=== PATIENT | female | born 1940 | race Caucasian/White ===

== ENCOUNTER 2018-04-01 17:26 | Observation (INO) ==
[2018-04-01] MEDS ORDERED: Aspirin 81 MG TAB.CHEW PO ONE (17:32)
--- NOTE | 2018-04-01 17:42 | Emergency Department Note ---
Disposition Clinical Impression: Chest pain Qualifiers: Chest pain type: unspecified Qualified Code(s): R07.9 - Chest pain, unspecified Disposition: Still a Patient General Adult HPI - General Chief complaint: ED Chest Pain Stated complaint: CP Time Seen by Provider: 04/01/18 17:32 Source: EMS Limitations: no limitations - History of Present Illness HPI Narrative: Attestation note: Patient was seen with the emergency medicine resident/nurse practitioner/ physician anesthesiologist assistant/transitional resident/medical student: Dr. Amanda Barnard I have personally performed a face to face evaluation on this patient. I have reviewed and agree with history and physical examination patient management and disposition. Briefly the salient points of the case are as follows: 69-year-old female brought in by EMS from urgent care center for lightheadedness fogginess and chest pain. No known history of CAD to prior cardiac catheterizations which were negative. Patient is neurologically nonfocal no facial asymmetry no slurred speech. GCS 15. EKG shows an intraventricular conduction delay. Unclear if this is new or not. Patient will get a head CT then she will get troponin screening labs chest x-ray. Disposition pending. Admission strong possibility. Pain Scale: 3 - Related Data Home Medications Medication Instructions Recorded Confirmed Advair 250-50 Diskus 01/23/18 Aspirin 01/23/18 Claritin D (12HR) 01/23/18 Diclofenac Sodium [Voltaren] 01/23/18 Duoneb 01/23/18 Famotidine 01/23/18 Incruse Ellipta 01/23/18 Ipratropium/Albuterol Neb 01/23/18 Klonopin 01/23/18 Magnesium 01/23/18 [place] 3 500 Softgel 01/23/18 Prilosec 01/23/18 Synthroid 01/23/18 Ventolin Hfa 01/23/18 Vitamin C 01/23/18 Vitamin D3 01/23/18 Vitamin E 01/23/18 Previous Rx's Medication Instructions Recorded Albuterol Sulfate [Albuterol 2 puff IH QID #1 inhaler 01/23/18 Inhaler] Amoxicillin 875 mg PO BID #20 tablet 01/23/18 cephALEXin [Keflex] 500 mg PO TID #21 capsule 02/14/18 Allergies Allergy/AdvReac Type Severity Reaction Status Date / Time acetaminophen [From Percocet] Allergy Nausea Verified 04/01/18 17:37 ciprofloxacin [From Cipro] Allergy Nausea Verified 04/01/18 17:37 Corticosteroids Allergy Nausea Verified 04/01/18 17:37 (Glucocorticoids) doxycycline Allergy Nausea Verified 04/01/18 17:37 ketorolac [From Toradol] Allergy Nausea Verified 04/01/18 17:37 nitrofurantoin Allergy Nausea Verified 04/01/18 17:37 [From Macrobid] NSAIDS (Non-Steroidal Allergy Nausea Verified 04/01/18 17:37 Anti-Inflamma Oxycodone [From Percocet] Allergy Nausea Verified 04/01/18 17:37 prednisone Allergy Nausea Verified 04/01/18 17:37 Jijxwwu-Ivm-Iii Reductase Allergy Nausea Verified 04/01/18 17:37 Inhibitor [Statins] Sulfa (Sulfonamide Allergy Nausea Verified 04/01/18 17:37 Antibiotics) Past Medical History - Past Medical History Medical history: Reports: kidney stones, thyroid disease, TIA, other Surgical history: Reports: appendectomy, hysterectomy, orthopedic, other Psychiatric history: Reports: anxiety, depression DIRECTOR HAIR history: Reports: non-contributory - Social History Smoking Status: Never smoker Smokeless Tobacco Status: No Alcohol use: Reports: none Drug use: Reports: none Physical Exam - General Limitations: no limitations General appearance: alert, in no apparent distress Course Vital Signs Temperature 98.5 F 04/01/18 17:27 Pulse Rate 71 04/01/18 17:27 Respiratory Rate 22 04/01/18 17:27 Blood Pressure 190/77 04/01/18 17:27 O2 Sat by Pulse Oximetry 100 04/01/18 17:27 Temperature 98.5 F 04/01/18 17:27 Pulse Rate 71 04/01/18 17:27 Respiratory Rate 22 04/01/18 17:27 Blood Pressure 190/77 04/01/18 17:27 O2 Sat by Pulse Oximetry 100 04/01/18 17:27 Oxygen Delivery Oxygen Delivery Room Air
[2018-04-01 17:58] LABS: Basophils # 0.1 K/mcL (0.0-0.2); Basophils % 0.6 %; Eosinophils # 0.3 K/mcL (0.0-0.6); Eosinophils % 2.7 %; Hematocrit 41.8 % (35.3-44.9); Hemoglobin 13.6 g/dL (11.5-15.4); Immature Granulocytes % 0.5 % (0-4); Lymphocytes # 3.7 K/mcL (0.6-4.6); Lymphocytes % 37.2 %; Mean Corpuscular HGB Conc 32.5 g/dL (31.6-35.5); Mean Corpuscular Hemoglobin 30.4 pg (28.0-33.3); Mean Corpuscular Volume 93.3 fL (83.0-100.0); Mean Platelet Volume 11.5 fL (9.4-12.4); Monocytes # 0.9 K/mcL (0.0-1.3); Monocytes % 9.3 %; Neutrophils # 4.9 K/mcL (1.6-8.9); Platelet Count 253 K/mcL (140-400); Red Blood Count 4.48 M/mcL (3.82-4.97); Red Cell Distribution Width 12.4 % (11.5-14.5); Segmented Neutrophils % 49.7 %
--- NOTE | 2018-04-01 18:00 | Emergency Department Note ---
Disposition Clinical Impression: Shortness of breath Chest pain Qualifiers: Chest pain type: unspecified Qualified Code(s): R07.9 - Chest pain, unspecified Disposition: Admitted As Inpatient Condition: Good Referrals: Kodak Martinez MD [Primary Care Provider] - Forms: ED Satisfaction Letter General Adult HPI - General Chief complaint: ED Chest Pain Stated complaint: CP Time Seen by Provider: 04/01/18 17:32 Source: EMS Mode of arrival: EMS Limitations: no limitations Nursing Notes Reviewed: Yes Vital Signs Reviewed: Yes - History of Present Illness HPI Narrative: 77 year old woman with hx significant for CAD, anxiety, HTN, HLD and very remote CVA (). Was at urgent care complaining of chest pain with L arm radiation that began ~1100 today thats intermittent, worse with exertion and was transferred via EMS to ED. During transport she had what was described by EMS as syncopal event for 30 seconds, EMS ECG NSR, HR 70, LBBB. She had spontaneous return to consciousness prior to arrival to ED. Upon arrival here she was complaining of mid sternal and L superior thoracic chest pain with occasional L arm radiation. She additionally complained of SOB during and bilateral LE weakness along with anxiety. She denied any blurry vision, diplopia , diaphoresis, abdominal pain, N/V, numbness/paresthesia. Pt Subjective Complaint: chest pain Onset (ago): hour(s) Location: chest Radiation: extremity Pain Severity: mild Pain Scale: 3 - Related Data Home Medications Medication Instructions Recorded Confirmed Advair 250-50 Diskus 01/23/18 Aspirin 01/23/18 Claritin D (12HR) 01/23/18 Diclofenac Sodium [Voltaren] 01/23/18 Duoneb 01/23/18 Famotidine 01/23/18 Incruse Ellipta 01/23/18 Ipratropium/Albuterol Neb 01/23/18 Klonopin 01/23/18 Magnesium 01/23/18 [place] 3 500 Softgel 01/23/18 Prilosec 01/23/18 Synthroid 01/23/18 Ventolin Hfa 01/23/18 Vitamin C 01/23/18 Vitamin D3 01/23/18 Vitamin E 01/23/18 Previous Rx's Medication Instructions Recorded Albuterol Sulfate [Albuterol 2 puff IH QID #1 inhaler 01/23/18 Inhaler] Amoxicillin 875 mg PO BID #20 tablet 01/23/18 cephALEXin [Keflex] 500 mg PO TID #21 capsule 02/14/18 Allergies Allergy/AdvReac Type Severity Reaction Status Date / Time acetaminophen [From Percocet] Allergy Nausea Verified 04/01/18 17:37 ciprofloxacin [From Cipro] Allergy Nausea Verified 04/01/18 17:37 Corticosteroids Allergy Nausea Verified 04/01/18 17:37 (Glucocorticoids) doxycycline Allergy Nausea Verified 04/01/18 17:37 ketorolac [From Toradol] Allergy Nausea Verified 04/01/18 17:37 nitrofurantoin Allergy Nausea Verified 04/01/18 17:37 [From Macrobid] NSAIDS (Non-Steroidal Allergy Nausea Verified 04/01/18 17:37 Anti-Inflamma Oxycodone [From Percocet] Allergy Nausea Verified 04/01/18 17:37 prednisone Allergy Nausea Verified 04/01/18 17:37 Wxnblyq-Eay-Fcs Reductase Allergy Nausea Verified 04/01/18 17:37 Inhibitor [Statins] Sulfa (Sulfonamide Allergy Nausea Verified 04/01/18 17:37 Antibiotics) All systems ED: reviewed and negative except as stated. 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 Absent: nystagmus - ENT ENT exam: mucous membranes moist - Neck Neck exam: Present: normal inspection, trachea midline - Chest Chest inspection: Present: normal inspection, symmetric chest wall rise. Absent : tenderness - Respiratory Respiratory exam: Present: normal lung sounds bilaterally - Cardiovascular Cardiovascular exam: Present: regular rate, normal rhythm, normal heart sounds, +S1, +S2 - Abdominal Exam Abdominal exam: Present: soft, Non-Tender. Absent: distention, guarding, rebound, rigidity - Extremities Exam Extremities exam: Absent: pedal edema - Expanded Lower Extremity Exam Neurovascular/Tendon exam: Present: normal capillary refill. Absent: pulse deficit - Neurological Exam Neurological exam: Present: alert, CN II-XII intact - Expanded Neurological Exam Speech: Present: fluid speech (but slowed) Motor strength - LUE: 5/5 Motor strength - RUE: 5/5 Motor strength - LLE: 4/5 Motor strength - RLE: 4/5 - Psychiatric Psychiatric exam: Present: anxious - Skin Skin exam: Present: warm, dry, intact, normal color Course Course Narrative: Presents to ED from urgent care with intermittent midsternal/L superior thoracic chest pain that radiates to L arm that began at 1100 today with associated SOB, anxiety, and bilateral LE weakness. Had syncopal episode for 30 seconds during EMS transfer with spontaneous resolution. POC glucose 99 on arrival, ECG 1733 NSR, hr 71, pr 195, qt 443, normal p axis, intraventricular conduction delay without any acute changes or major changes from old ECG from . BP 190/77 initially. Will give 325mg ASA, get d dimer, troponin, cbc, bmp , ct head and cxr now. HEART score 5. 1825: Troponin neg, D dimer high at 935, Cr 1, will get CTA now in setting of chest pain, sob and elevated d dimer. CT head no acute intracranial abnormality. Diffuse atrophic changes with findings suggesting chronic microvascular ischemia and an old right frontal lobe infarct. 1844: She says she is no longer having symptoms and feels much better. 2024: No evidence of acute pulm embolism or pulm abnormality on CTA chest. 2114: Will admit to hospitalist service. Dr West accepted the admission. Vital Signs Temperature 98.5 F 04/01/18 17:27 Pulse Rate 71 04/01/18 17:27 Respiratory Rate 22 04/01/18 17:27 Blood Pressure 190/77 04/01/18 17:27 O2 Sat by Pulse Oximetry 100 04/01/18 17:27 Temperature 98.5 F 04/01/18 17:27 Pulse Rate 63 04/01/18 19:30 Respiratory Rate 18 04/01/18 19:30 Blood Pressure 160/80 04/01/18 19:30 O2 Sat by Pulse Oximetry 99 04/01/18 19:30 Oxygen Delivery Oxygen Delivery Room Air Medical Decision Making - Lab Data Result diagrams: 04/01/18 17:46 04/01/18 17:46 Lab Results 04/01/18 04/01/18 04/01/18 Range/Units 17:46 17:46 17:46 WBC 9.9 (4.3-11.1) K/mcL RBC 4.48 (3.82-4.97) M/mcL Hgb 13.6 (11.5-15.4) g/dL Hct 41.8 (35.3-44.9) % MCV 93.3 (83.0-100.0) fL MCH 30.4 (28.0-33.3) pg MCHC 32.5 (31.6-35.5) g/dL RDW 12.4 (11.5-14.5) % Plt Count 253 (140-400) K/mcL MPV 11.5 (9.4-12.4) fL Immature Gran % 0.5 (0-4) % Seg Neutrophils % 49.7 % Lymphocytes % 37.2 % Monocytes % 9.3 % Eosinophils % 2.7 % Basophils % 0.6 % Neutrophils # 4.9 (1.6-8.9) K/mcL Lymphocytes # 3.7 (0.6-4.6) K/mcL Monocytes # 0.9 (0.0-1.3) K/mcL Eosinophils # 0.3 (0.0-0.6) K/mcL Basophils # 0.1 (0.0-0.2) K/mcL PT 10.1 (9.4-12.1) Seconds INR 0.9 D-Dimer 952 H (0-500) ng/mLFEU Sodium 139 (136-145) mEq/L Potassium 3.8 (3.5-5.1) mEq/L Chloride 108 H (98-107) mEq/L Carbon Dioxide 20 L (23-29) mEq/L BUN 26 H (8-23) mg/dL Creatinine 1.04 (0.60-1.20) mg/dL Est GFR ( Amer) > 60 (> 60) Est GFR (Non-Af Amer) 51 L (> 60) BUN/Creatinine Ratio 25 (6-26) Glucose 86 (70-105) mg/dL Calculated Osmolality 292 (280-300) Calcium 9.7 (8.6-10.3) mg/dL Troponin I < 0.03 (< 0.04) ng/mL
[2018-04-01 18:03] LABS: INR 0.9; Prothrombin Time 10.1 Seconds (9.4-12.1)
[2018-04-01] MEDS ORDERED: Isovue-370 500 ML INFUS..BTL IV ONE (18:22)
[2018-04-01 18:23] LABS: BUN/Creatinine Ratio 25 (6-26); Blood Urea Nitrogen 26 mg/dL (8-23); Calcium 9.7 mg/dL (8.6-10.3); Carbon Dioxide 20 mEq/L (23-29); Chloride 108 mEq/L (98-107); Glucose 86 mg/dL (70-105); Osmolality,Calculated 292 (280-300); Potassium 3.8 mEq/L (3.5-5.1); Sodium 139 mEq/L (136-145); eGFR For Non-African Americans 51 (> 60)
[2018-04-01 18:24] LABS: Troponin I < 0.03 ng/mL (< 0.04)
[2018-04-01] MEDS ORDERED: Naloxone 0.4 MG/ML INJ IVP PRN (23:00)
[2018-04-01] MEDS ORDERED: *HR* Enoxaparin 60 MG/0.6 ML SYRINGE SQ STA (23:00)
[2018-04-01] MEDS ORDERED: 0.9 % Sodium Chloride 1,000 ML IVC SCH (23:00)
[2018-04-01] MEDS: clonazePAM 1 MG TABLET PO SCH (23:55)
--- NOTE | 2018-04-02 00:20 | Internal Med History&Physical ---
Date of Encounter: 04/01/18 Time of Encounter: 21:00 Internal Medicine - H&P: HPI Chief complaint: chest pain; syncope Admitted From: Home Plans for Post Hospital Care: Home History of present illness: Ms. Kang is a 77 year old female who presents to the ER tonight with complaints of chest pain. She was sitting at home watching TV when she developed chest pain and heaviness. She had been experiencing these symptoms for the last couple days. However, today's episode was more severe and intense and that prompted her to call EMS. She was en route to the hospital by EMS when she developed a syncopal spell in the squad. Upon arrival to the ER, she was minimally responsive, but within minutes, she was back to baseline cognition and mental state. Workup in ER was negative except for an EKG showing left bundle branch block. This was an old finding and not new. She was therefore admitted to the hospitalist service. Upon my assessment of the patient in the ER, she confirms the above history. She reports a history of known coronary disease but has not required intervention. She had a heart catheterization about 10 years ago documenting coronary disease. She also reports that her son suddenly several years ago from a massive OR at the age of 49. She does report a history of anxiety and GERD. She takes Klonopin for anxiety and is well-controlled. She takes [id number] famotidine for GERD which generally treats her symptoms. Her chest pain may be due to either the above, but cardiac issues must be ruled out nonetheless. She did have an elevated d-dimer in the ER which prompted them to proceed with CTA of the chest. There was no evidence of PE. She has had some nonspecific calf tenderness. She denies any prolonged travel. She denies any personal or family history of blood clots. Past Med Surg Social Fam HX - Past Medical History Attestation: Yes The following information was validated with the patient. Source: patient, old records reviewed Medical history: kidney stones, thyroid disease, TIA Additional medical history: carotid stenosis, hypothyroidism Psychiatric history: anxiety, depression - Past Surgical History Surgical History: appendectomy, hysterectomy, knee replacement, orthopedic, other Additional surgical history: back surgery - Social History Smoking Status: Former smoker Smokeless Tobacco Status: No Alcohol use: none Drug use: none Current living situation: Home - Independent Activity Level: Independent ambulation Recent Out of Country Travel Within the Last 8 Weeks: No - Family History Mother Hx Family Cancer: Yes (uterine, colon) Son Living Status: Hx Family Cardiac Disorders: Yes (OR) Internal Medicine - H&P: Meds Advair 250-50 Diskus 01/23/18 [History] Albuterol Sulfate [Albuterol Inhaler] 2 puff IH QID #1 inhaler 01/23/18 [Rx] Amoxicillin 875 mg PO BID #20 tablet 01/23/18 [Rx] Aspirin 81 mg PO DAILY 01/23/18 [History] Claritin D (12HR) 01/23/18 [History] Diclofenac Sodium [Voltaren] 01/23/18 [History] Duoneb 01/23/18 [History] Famotidine 01/23/18 [History] Incruse Ellipta 01/23/18 [History] Ipratropium/Albuterol Neb 01/23/18 [History] Klonopin 1 mg PO BID 01/23/18 [History] Magnesium 01/23/18 [History] [place] 3 500 Softgel 01/23/18 [History] Prilosec 01/23/18 [History] Synthroid 50 mg PO DAILY 01/23/18 [History] Ventolin Hfa 01/23/18 [History] Vitamin C 01/23/18 [History] Vitamin D3 01/23/18 [History] Vitamin E 01/23/18 [History] cephALEXin [Keflex] 500 mg PO TID #21 capsule 02/14/18 [Rx] 3 Allergy/AdvReac Type Severity Reaction Status Date / Time acetaminophen [From Percocet] Allergy Nausea Verified 04/01/18 17:37 ciprofloxacin [From Cipro] Allergy Nausea Verified 04/01/18 17:37 Corticosteroids Allergy Nausea Verified 04/01/18 17:37 (Glucocorticoids) doxycycline Allergy Nausea Verified 04/01/18 17:37 ketorolac [From Toradol] Allergy Nausea Verified 04/01/18 17:37 nitrofurantoin Allergy Nausea Verified 04/01/18 17:37 [From Macrobid] NSAIDS (Non-Steroidal Allergy Nausea Verified 04/01/18 17:37 Anti-Inflamma Oxycodone [From Percocet] Allergy Nausea Verified 04/01/18 17:37 prednisone Allergy Nausea Verified 04/01/18 17:37 Qnqsreu-Jim-Tid Reductase Allergy Nausea Verified 04/01/18 17:37 Inhibitor [Statins] Sulfa (Sulfonamide Allergy Nausea Verified 04/01/18 17:37 Antibiotics) - Constitutional Constitutional: no chills, no fever(s), no night sweats - EENT Eyes: no blurry vision, no change in vision Ears: no ear pain, no tinnitus Nose, mouth and throat: no nasal congestion, no sinus pressure, no sore throat - Cardiovascular Cardiovascular ROS IM: chest pain, dyspnea, dyspnea on exertion, syncope, no orthopnea, no palpitations, no paroxysmal nocturnal dyspnea - Respiratory Respiratory: no cough, no hemoptysis, no chest congestion, no excessive phlegm production, no change in phlegm color - Gastrointestinal Gastrointestinal: dyspepsia, heartburn, no abdominal pain, no diarrhea, no hematemesis, no hematochezia, no melena, no vomiting - Genitourinary Genitourinary: no dysuria, no flank pain, no hematuria - Musculoskeletal Musculoskeletal ROS IM: back pain, no arthralgias - Integumentary Integumentary IM: no rash, no jaundice - Neurological Neurological ROS: no dizziness, no focal weakness, no frequent falls, no headache(s) - Psychiatric Psychiatric: anxiety, no depression - Endocrine Endocrine IM: no cold intolerance, no heat intolerance, no polydipsia, no polyphagia, no polyuria - Hematologic/Lymphatic Hematologic/Lymphatic: no easy bruising, no lymphadenopathy - Allergic/Immunologic Allergic/Immunologic: no GI upset with certain foods - Constitutional Vitals: Temp Pulse Resp BP Pulse Ox 97.8 F 62 16 162/80 96 04/01/18 23:13 04/01/18 23:13 04/01/18 23:13 04/01/18 23:13 04/01/18 23:13 General appearance: Present: cooperative, A&O X 3, pleasant, no acute distress, answers questions appropriately Exam: see below - Head Head exam: Present: atraumatic, normal inspection - Eye Eye exam: Present: EOMI, PERRL. Absent: scleral icterus Pupils: Present: normal accommodation - ENT ENT exam: Present: mucous membranes moist, normal exam, normal oropharynx - Neck Neck exam general surgery: Present: full ROM, supple. Absent: tenderness, nuchal rigidity, thyromegaly - Expanded Neck Exam Neck exam: Absent: carotid bruit - Respiratory Respiratory exam: Present: CTAB. Absent: chest wall tenderness, rales, respiratory distress, rhonchi, wheezes - Cardiovascular Cardiovascular exam: Present: RRR, +S1, +S2. Absent: diastolic murmur, systolic murmur - GI/Abdominal GI/Abdominal exam: Present: normal bowel sounds, soft. Absent: hepatomegaly, mass, splenomegaly, tenderness - Extremities Exam Extremities exam: Present: calf tenderness (minimal blateral ), full ROM, warm, radial pulses palpable and symmetrical. Absent: joint swelling, pedal edema, tenderness - Back Exam Back exam: Absent: CVA tenderness (L), CVA tenderness (R) - Neurological Exam Neurological exam: Present: alert, CN II-XII intact, oriented X3, no focal deficits - Psychiatric Psychiatric exam: Present: normal affect, normal mood - Skin Skin exam: Present: dry, intact, warm Internal Med - H&P Results - Labs CBC & Chem 7: 04/01/18 17:46 04/01/18 17:46 - EKG Data -: EKG Interpreted by Myself - EKG Data Prior EKG available for review: yes EKG comments: 04/02/18 00:25 LBBB -- old - Diagnostic Studies Chest x-ray Status: image reviewed by me (negative) - Assessment and plan (1) Chest pain Current Visit: Yes Status: Acute Assessment and plan: 1. Will trend troponins and EKG's. 2. Will order ECHO. 3. Consult cardiology given LBBB, chest pain, and history of known CAD. Last [facility] was here about 10 years ago per patient. Qualifiers: Chest pain type: chest pain due to myocardial ischemia Ischemic chest pain type: stable angina pectoris Qualified Code(s): I20.8 - Other forms of angina pectoris (2) Syncope Current Visit: Yes Status: Acute Assessment and plan: 1. Will order ECHO and Carotid Dopplers. 2. Monitor on telemetry. 3. Will monitor glucose for hypoglycemia. 4. Cardiac work-up as above. Qualifiers: Syncope type: unspecified Qualified Code(s): R55 - Syncope and collapse (3) Elevated d-dimer Current Visit: Yes Status: Acute Assessment and plan: 1. Some clinical concern for DVT given D-Dimer elevation and subtle calf tenderness. 2. I ordered a one time dose of Lovenox (1 mg/kg) tonight and BLE Dopplers to be done in the morning. 3. Pending Doppler results, she may need further anti-coagulation. (4) DVT prophylaxis Current Visit: Yes Status: Acute Assessment and plan: 1. Lovenox one time as above. 2. Further prophylaxis vs anti-coagulation pending BLE Dopplers.
[2018-04-02 01:15] LABS: Basophils % 0.5 %; Eosinophils # 0.3 K/mcL (0.0-0.6); Eosinophils % 3.8 %; Hematocrit 36.2 % (35.3-44.9); Immature Granulocytes % 0.3 % (0-4); Lymphocytes # 2.4 K/mcL (0.6-4.6); Lymphocytes % 29.8 %; Mean Corpuscular HGB Conc 33.1 g/dL (31.6-35.5); Mean Corpuscular Hemoglobin 30.8 pg (28.0-33.3); Mean Corpuscular Volume 92.8 fL (83.0-100.0); Mean Platelet Volume 11.9 fL (9.4-12.4); Monocytes % 12.1 %; Neutrophils # 4.2 K/mcL (1.6-8.9); Platelet Count 204 K/mcL (140-400); Red Cell Distribution Width 12.6 % (11.5-14.5); Segmented Neutrophils % 53.5 %
[2018-04-02 01:18] LABS: INR 0.9; Prothrombin Time 10.2 Seconds (9.4-12.1)
[2018-04-02 01:21] LABS: Activated Partial Thrombo Time 44.2 Seconds (26.0-36.0)
[2018-04-02 01:30] LABS: Alanine Aminotransferase 6 Units/L (7-52); Albumin 3.6 g/dL (3.5-5.7); Albumin/Globulin Ratio 1.7 (1.1-2.2); Alkaline Phosphatase 61 Units/L (34-104); Aspartate Amino Transferase 16 Units/L (13-39); BUN/Creatinine Ratio 24 (6-26); Bilirubin,Total 0.3 mg/dL (0.3-1.0); Blood Urea Nitrogen 24 mg/dL (8-23); Calcium 8.9 mg/dL (8.6-10.3); Carbon Dioxide 20 mEq/L (23-29); Chloride 112 mEq/L (98-107); Chol/HDL Ratio 3.8 (0-4.9); Cholesterol 156 mg/dL (< 200); Globulin 2.1 g/dL (2.4-3.5); Glucose 89 mg/dL (70-105); HDL Cholesterol 41 mg/dL (40-59); LDL Cholesterol,Calculated 69 mg/dL (0-99); Magnesium 1.8 mg/dL (1.6-2.6); Osmolality,Calculated 296 (280-300); Potassium 3.7 mEq/L (3.5-5.1); Sodium 141 mEq/L (136-145); Total Protein 5.7 g/dL (6.4-8.9); Triglycerides 228 mg/dL (< 150); eGFR For Non-African Americans 53 (> 60)
[2018-04-02] MEDS: clonazePAM 1 MG TABLET PO SCH (07:34)
[2018-04-02] MEDS ORDERED: Aspirin 81 MG TAB.CHEW PO SCH (09:00)
[2018-04-02 11:58] VITALS: BP 143/61
--- NOTE | 2018-04-02 12:25 | Discharge Summary ---
<Reyes Lama Felicia - Last Filed: 04/02/18 16:31> - NOTES TO OUTPATIENT PROVIDER Notes to Outpatient Provider: Ms. Kang presented to the ER on 04/01 with complaints of chest pain. She was sitting at home watching TV when she developed chest pain and heaviness. She had been experiencing these symptoms for the last couple days. However, this episode was more severe and intense and that prompted her to call EMS. She was en route to the hospital by EMS when she developed a syncopal spell in the squad. Upon arrival to the ER, she was minimally responsive, but within minutes, she was back to baseline cognition and mental state. EKG and serial troponins were unremarkable save for an old left bundle branch block. D-dimer was elevated, however CTA chest was negative for PE. Orders not resulted at time of discharge: Pending orders 04/01/18 23:00 EV echocardiogram Routine EV venous imaging LE BI Routine 04/02/18 06:00 ECG 12 lead ECG [ECG] AM 0600 04/02/18 12:00 Troponin I Q6H Date of Encounter: 04/02/18 Time of Encounter: 12:22 - Discharge Diagnosis (1) Chest pain Priority: Primary Status: Acute Assessment and Plan: EKG from ED showed normal sinus rhythm with LBBB that can be seen in previous EKGs from November and December Serial troponins all negative CXR unremarkable Cardiology gave pt the option to pursue stress testing as inpatient or outpatient. Pt decided to schedule it in the outpatient setting. Qualifiers: Chest pain type: chest pain due to myocardial ischemia Ischemic chest pain type: stable angina pectoris Qualified Code(s): I20.8 - Other forms of angina pectoris (2) Syncope Priority: Primary Status: Acute Assessment and Plan: Head CT negative for acute abnormalities Normoglycemic Pt elected to not wait for echo or carotid dopplers to be performed Suspect syncope type episode may have been related to hypoxia from chronic lung disease or anxiety Qualifiers: Syncope type: unspecified Qualified Code(s): R55 - Syncope and collapse (3) Elevated d-dimer Priority: Secondary Status: Acute Assessment and Plan: D-dimer checked in ED 952 Non-tachycardic SpO2 95% on room air CTA chest was negative No calf tenderness Pt decided to be discharged without completing LE dopplers, but lower suspicion for DVT and/or PE Likely 2/2 chronic respiratory disease Hospital course: Ms. Kang is a 77 year old female Discharge discussed with: patient, nurse, professional services consultant - Time Spent with Patient Total time spent providing and/or coordinating discharge services: - Discharge Medications Home Medications: Advair 250-50 Diskus 01/23/18 [History] Albuterol Sulfate [Albuterol Inhaler] 2 puff IH QID #1 inhaler 01/23/18 [Rx] Amoxicillin 875 mg PO BID #20 tablet 01/23/18 [Rx] Aspirin 81 mg PO DAILY 01/23/18 [History] Claritin D (12HR) 01/23/18 [History] Diclofenac Sodium [Voltaren] 01/23/18 [History] Duoneb 01/23/18 [History] Famotidine 01/23/18 [History] Incruse Ellipta 01/23/18 [History] Ipratropium/Albuterol Neb 01/23/18 [History] Klonopin 1 mg PO BID 01/23/18 [History] Magnesium 01/23/18 [History] [place] 3 500 Softgel 01/23/18 [History] Prilosec 01/23/18 [History] Synthroid 50 mg PO DAILY 01/23/18 [History] Ventolin Hfa 01/23/18 [History] Vitamin C 01/23/18 [History] Vitamin D3 01/23/18 [History] Vitamin E 01/23/18 [History] cephALEXin [Keflex] 500 mg PO TID #21 capsule 02/14/18 [Rx] Allergies/Adverse Reactions: 3 Allergy/AdvReac Type Severity Reaction Status Date / Time acetaminophen [From Percocet] Allergy Nausea Verified 04/01/18 17:37 ciprofloxacin [From Cipro] Allergy Nausea Verified 04/01/18 17:37 Corticosteroids Allergy Nausea Verified 04/01/18 17:37 (Glucocorticoids) doxycycline Allergy Nausea Verified 04/01/18 17:37 ketorolac [From Toradol] Allergy Nausea Verified 04/01/18 17:37 nitrofurantoin Allergy Nausea Verified 04/01/18 17:37 [From Macrobid] NSAIDS (Non-Steroidal Allergy Nausea Verified 04/01/18 17:37 Anti-Inflamma Oxycodone [From Percocet] Allergy Nausea Verified 04/01/18 17:37 prednisone Allergy Nausea Verified 04/01/18 17:37 [id number]-Ndj Reductase Allergy Nausea Verified 04/01/18 17:37 Inhibitor [Statins] Sulfa (Sulfonamide Allergy Nausea Verified 04/01/18 17:37 Antibiotics) Date of admission: 04/01/18 21:14 Primary care physician: Kodak Martinez MD Consults: 04/01/18 23:03 Consult to Physician [CONS] Routine Consulting Provider: Natalia Malik Reason for Consult: chest pain; known CAD; LBBB; FH sudden from [place] Call Completed: No Discharging clinician: Reyes Lama - Constitutional Vitals: Temp Pulse Resp BP Pulse Ox 98.2 F 62 16 143/61 95 04/02/18 11:54 04/02/18 11:54 04/02/18 11:54 04/02/18 11:54 04/02/18 11:54 General appearance: Present: cooperative, A&O X 3, pleasant, no acute distress, answers questions appropriately Exam: Constitutional: well nourished, well developed female. no acute distress Head: normocephalic and atraumatic Eyes: PERRL, EOMI, sclera anicteric Neck: supple, trachea midline, no lymphadenopathy Heart: RRR +S1 +S2. no murmurs, clicks, or rubs appreciated Lungs: CTA bilaterally. grossly diminished breath sounds. non-labored breathing. No wheezes, rales, or rhonchi. GI: abdomen soft, non-tender, non-distended Extremities: radial pulses palpable and symmetrical. no cyanosis, pedal edema, or calf tenderness Neuro: A&Ox3. no focal deficits. no speech difficulty or abnormality Skin: warm, dry, intact - Patient Status Disposition: Home, Self-Care Condition: Good Functional capacity at discharge: independent ambulation Overall status at discharge: patient is progressing back to baseline - Ambulatory Orders Ambulatory Orders: SP exercise nuclear stress Time Frame: 3 Days, Facility: [facility], Location: Cardiopulmonary Svc - Discharge Instructions Instructions: Chest Pain (DC), Syncope (DC) Follow Up With: Kodak Martinez MD [Primary Care Provider] - (follow up appointment has been requested. Office will call with date and time of appointment. Please call office if they do not call you. ) - Diet and Activity Activity: increase activity as tolerated, resume usual activities as tolerated Diet: regular diet <Irene Carvalho - Last Filed: 04/02/18 16:55> Orders not resulted at time of discharge: Pending orders 04/02/18 06:00 ECG 12 lead ECG [ECG] AM 0600 Date of Encounter: 04/02/18 - Discharge Diagnosis (1) Chest pain Status: Acute Qualifiers: Chest pain type: chest pain due to myocardial ischemia Ischemic chest pain type: stable angina pectoris Qualified Code(s): I20.8 - Other forms of angina pectoris (2) Syncope Status: Acute Qualifiers: Syncope type: unspecified Qualified Code(s): R55 - Syncope and collapse (3) Elevated d-dimer Status: Acute Hospital course: Ms. Kang is a 77 year old female - Time Spent with Patient Total time spent providing and/or coordinating discharge services: Date of admission: 04/01/18 21:14 Primary care physician: Kodak Martinez MD Consults: 04/01/18 23:03 Consult to Physician [CONS] Routine Consulting Provider: Natalia Malik Reason for Consult: chest pain; known CAD; LBBB; FH sudden from [place] Call Completed: No - Constitutional Vitals: Temp Pulse Resp BP Pulse Ox 98.2 F 62 16 143/61 95 04/02/18 11:54 04/02/18 11:54 04/02/18 11:54 04/02/18 11:54 04/02/18 11:54 - Attending Attestation I examined this patient and my medical decision-making was reviewed with the Resident Physician Dr. Lama. I agree with the documented findings, disposition and treatment plan as described except to the extent set forth below. Ms. Kang is a 77 year old female with a known past medical history of hypertension, hyperlipidemia and hypothyroidism pt presented to the ER with complaints of chest pain. Pt was admitted in the hospital and placed her on athletic monitor, checked serial troponin which were negative. Her EKG did not show any acute ischemic changes. Patient was evaluated by card grinder helper who recommended outpatient stress test. Will discharge the patient today home in stable condition andprovided a prescription for outpatient stress test. Gen: A, A< O x3 Chest: Diminished BS b/l Heart: S1S2 + RRR
--- NOTE | 2018-04-02 14:48 | Cardiology Consult Note ---
Date of Encounter: 04/02/18 Time of Encounter: 14:45 Assessment and Plan (1) Chest pain Status: Acute Atypical chest pain occurred at rest almost noncardiac due to reproducibility on deep palpation of the left pectoral region noninvasive risk stratification as an outpatient chemical stress test and echocardiogram Qualifiers: Chest pain type: chest pain due to myocardial ischemia Ischemic chest pain type: stable angina pectoris Qualified Code(s): I20.8 - Other forms of angina pectoris Discussion w patient/family: The assessment and plan as outlined above was discussed with the patient and/or family members who expressed understanding and agreement. All questions were answered. Thank you for involving us in the care of your patient. Please call with any questions. History of Present Illness Consult date: 04/02/18 Consult reason: Chest Pain Chief complaint: Chest pain History of present illness: Ms. Kang is a 77 year old female ex-smoker history of carotid artery disease presents to the emergency department with chest pain shortness of breath developed while sitting at rest. Patient has no exertional symptoms and describes retrosternal chest pain with left pectoral region reproducible upon deep palpation. Cardiac markers unremarkable previous left heart catheter remotely was unremarkable and recent stress test according to the patient at an outside hospital were all unremarkable as well. Patient maintains reasonable functional capacity with activities of daily life. She currently identifies her chest pain when palpating her left pectoral region. We discussed the possibility of a noninvasive workup/risk stratification and she agreed to proceed with this as an outpatient. Patient understands she must return Siemers. She has any further episodes of chest pain or dyspnea on exertion Past Med Surg Social Fam HX - Past Medical History Medical history: kidney stones, thyroid disease, TIA Additional medical history: carotid stenosis, hypothyroidism Psychiatric history: anxiety, depression - Past Surgical History Surgical History: appendectomy, hysterectomy, knee replacement, orthopedic, other Additional surgical history: back surgery - Social History Smoking Status: Former smoker Smokeless Tobacco Status: No Alcohol use: none Drug use: none - Family History Mother Hx Family Cancer: Yes (uterine, colon) Son Living Status: Hx Family Cardiac Disorders: Yes (OK) Medications and Allergies Advair 250-50 Diskus 01/23/18 [History] Albuterol Sulfate [Albuterol Inhaler] 2 puff IH QID #1 inhaler 01/23/18 [Rx] Amoxicillin 875 mg PO BID #20 tablet 01/23/18 [Rx] Aspirin 81 mg PO DAILY 01/23/18 [History] Claritin D (12HR) 01/23/18 [History] Diclofenac Sodium [Voltaren] 01/23/18 [History] Duoneb 01/23/18 [History] Famotidine 01/23/18 [History] Incruse Ellipta 01/23/18 [History] Ipratropium/Albuterol Neb 01/23/18 [History] Klonopin 1 mg PO BID 01/23/18 [History] Magnesium 01/23/18 [History] [place] 3 500 Softgel 01/23/18 [History] Prilosec 01/23/18 [History] Synthroid 50 mg PO DAILY 01/23/18 [History] Ventolin Hfa 01/23/18 [History] Vitamin C 01/23/18 [History] Vitamin D3 01/23/18 [History] Vitamin E 01/23/18 [History] cephALEXin [Keflex] 500 mg PO TID #21 capsule 02/14/18 [Rx] 3 Allergy/AdvReac Type Severity Reaction Status Date / Time acetaminophen [From Percocet] Allergy Nausea Verified 04/01/18 17:37 ciprofloxacin [From Cipro] Allergy Nausea Verified 04/01/18 17:37 Corticosteroids Allergy Nausea Verified 04/01/18 17:37 (Glucocorticoids) doxycycline Allergy Nausea Verified 04/01/18 17:37 ketorolac [From Toradol] Allergy Nausea Verified 04/01/18 17:37 nitrofurantoin Allergy Nausea Verified 04/01/18 17:37 [From Macrobid] NSAIDS (Non-Steroidal Allergy Nausea Verified 04/01/18 17:37 Anti-Inflamma Oxycodone [From Percocet] Allergy Nausea Verified 04/01/18 17:37 prednisone Allergy Nausea Verified 04/01/18 17:37 [place] Reductase Allergy Nausea Verified 04/01/18 17:37 Inhibitor [Statins] Sulfa (Sulfonamide Allergy Nausea Verified 04/01/18 17:37 Antibiotics) All Systems Review: The remainder of the systems were reviewed and are negative Physical Examination Vital Signs, Last 4 Hours Temp Pulse Resp BP Pulse Ox 04/02/18 11:54 98.2 F 62 16 143/61 95 General: Conversant, No Apparent Distress HEENT: Atraumatic, Normocephaly, Mucus Membranes Moist Neck: No JVD, Normal carotid pulses Cardiac: Reg Rate and Rhythm, Normal S1 and S2, No Murmur Lungs: Normal Breath Sounds, No Wheeze, Rales, Rhonchi Neuro: Alert and responsive, No focal deficits noted Abdomen: Soft, Non-Tender Skin: No rashes noted on visualized skin Musculoskeletal: No Chest Wall Tenderness Extremities: No Clubbing, No Cyanosis, No Edema, Normal Pulses Results 04/02/18 00:44 04/02/18 00:44 Lab Results 04/02/18 04/02/18 04/02/18 00:44 00:44 00:44 WBC 7.9 Hgb 12.0 D Hct 36.2 Plt Count 204 INR 0.9 APTT 44.2 H Sodium Potassium Chloride Carbon Dioxide BUN Creatinine Glucose Calcium Magnesium Total Bilirubin AST ALT Alkaline Phosphatase Troponin I < 0.03 04/02/18 04/02/18 00:44 05:37 WBC Hgb Hct Plt Count INR APTT Sodium 141 Potassium 3.7 Chloride 112 H Carbon Dioxide 20 L BUN 24 H Creatinine 1.01 Glucose 89 Calcium 8.9 Magnesium 1.8 Total Bilirubin 0.3 AST 16 ALT 6 L Alkaline Phosphatase 61 Troponin I < 0.03 Consult Discharge Plan - Plan Instructions: Chest Pain (DC), Syncope (DC) Referrals: Kodak Martinez MD [Primary Care Provider] - (follow up appointment has been requested. Office will call with date and time of appointment. Please call office if they do not call you. )
--- NOTE | 2018-04-04 17:31 | Electrocardiograph Report ---
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
== END 2018-04-02 12:58 | disposition home or self-care (01) ==
LOC: 3BNU 17:26 → EMEROOARM 17:26 → SUATTDRO 21:14 → 3BNU 22:29
PROVIDERS: ADMIT Family Medicine; ATTEND Family Medicine

== ENCOUNTER 2020-02-12 15:55 | Observation (INO) ==
[2020-02-12] MEDS ORDERED: Nitroglycerin 0.4 MG TAB.SUBL SL PRN (16:09)
[2020-02-12] MEDS ORDERED: Aspirin 81 MG TAB.CHEW PO ONE (16:09)
[2020-02-12 17:05] LABS: Basophils # 0.1 K/mcL (0.0-0.2); Basophils % 0.8 %; Eosinophils # 0.3 K/mcL (0.0-0.6); Eosinophils % 3.6 %; Hematocrit 42.1 % (35.3-44.9); Hemoglobin 13.2 g/dL (11.5-15.4); Immature Granulocytes % 0.4 % (0-4); Lymphocytes # 2.7 K/mcL (0.6-4.6); Lymphocytes % 34.8 %; Mean Corpuscular HGB Conc 31.4 g/dL (31.6-35.5); Mean Corpuscular Hemoglobin 29.5 pg (28.0-33.3); Mean Platelet Volume 11.4 fL (9.4-12.4); Monocytes # 0.7 K/mcL (0.0-1.3); Monocytes % 9.5 %; Platelet Count 248 K/mcL (140-400); Red Blood Count 4.48 M/mcL (3.82-4.97); Red Cell Distribution Width 13.2 % (11.5-14.5); Segmented Neutrophils % 50.9 %; White Blood Count 7.8 K/mcL (4.3-11.1)
[2020-02-12 17:19] LABS: Prothrombin Time 10.9 Seconds (9.4-12.1)
[2020-02-12 17:21] LABS: Activated Partial Thrombo Time 35.5 Seconds (26.0-36.0)
[2020-02-12 17:38] LABS: BUN/Creatinine Ratio 23 (6-26); Blood Urea Nitrogen 23 mg/dL (8-23); Calcium 9.7 mg/dL (8.6-10.3); Carbon Dioxide 29 mEq/L (23-29); Chloride 104 mEq/L (98-107); Glucose 80 mg/dL (70-105); Osmolality,Calculated 293 (280-300); Potassium 3.7 mEq/L (3.5-5.1); Sodium 140 mEq/L (136-145); Troponin I < 0.03 ng/mL (< 0.04); eGFR For African Americans > 60 (> 60); eGFR For Non-African Americans 52 (> 60)
[2020-02-12] MEDS ORDERED: Ondansetron 4 MG/2 ML VIAL IVP PRN (18:07)
[2020-02-12] MEDS ORDERED: Naloxone 0.4 MG/ML INJ IVP PRN (18:07)
[2020-02-12] MEDS ORDERED: Perflutren Lipid Microsphere 1.3 ML in 0.9 % Sodium Chloride 8.7 ML IVP PRN (18:12)
[2020-02-12] MEDS: clonazePAM 1 MG TABLET PO SCH (19:54)
[2020-02-13 04:41] LABS: Basophils # 0.1 K/mcL (0.0-0.2); Basophils % 0.7 %; Eosinophils # 0.4 K/mcL (0.0-0.6); Eosinophils % 4.6 %; Hematocrit 38.2 % (35.3-44.9); Immature Granulocytes % 0.4 % (0-4); Lymphocytes # 2.7 K/mcL (0.6-4.6); Mean Corpuscular HGB Conc 31.4 g/dL (31.6-35.5); Mean Corpuscular Hemoglobin 29.3 pg (28.0-33.3); Mean Corpuscular Volume 93.2 fL (83.0-100.0); Mean Platelet Volume 11.5 fL (9.4-12.4); Monocytes # 0.7 K/mcL (0.0-1.3); Monocytes % 9.3 %; Neutrophils # 3.8 K/mcL (1.6-8.9); Platelet Count 246 K/mcL (140-400); Red Cell Distribution Width 13.2 % (11.5-14.5); White Blood Count 7.6 K/mcL (4.3-11.1)
[2020-02-13 05:01] LABS: BUN/Creatinine Ratio 25 (6-26); Blood Urea Nitrogen 24 mg/dL (8-23); Calcium 9.2 mg/dL (8.6-10.3); Carbon Dioxide 26 mEq/L (23-29); Chloride 110 mEq/L (98-107); Chol/HDL Ratio 2.8 (0-4.9); Cholesterol 147 mg/dL (< 200); Glucose 89 mg/dL (70-105); HDL Cholesterol 53 mg/dL (40-59); LDL Cholesterol,Calculated 78 mg/dL (< 100); Osmolality,Calculated 298 (280-300); Potassium 4.2 mEq/L (3.5-5.1); Sodium 142 mEq/L (136-145); Triglycerides 82 mg/dL (< 150); eGFR For African Americans > 60 (> 60); eGFR For Non-African Americans 55 (> 60)
[2020-02-13 05:16] LABS: Thyroid Stimulating Hormone 0.259 mcIU/mL (0.340-5.600)
[2020-02-13] MEDS ORDERED: Regadenoson 0.4 MG/5 ML SYRINGE IVP ONE (07:00)
[2020-02-13] MEDS ORDERED: Ascorbic Acid 500 MG TABLET PO SCH (09:00)
[2020-02-13] MEDS ORDERED: Aspirin Enteric Coated 81 MG Tablet PO SCH (09:00)
[2020-02-13] MEDS ORDERED: Magnesium Oxide 400 MG TABLET PO SCH (09:00)
[2020-02-13 09:40] LABS: Triiodothyronine (T3) Total 0.73 ng/mL (0.87-1.78)
[2020-02-13] MEDS: clonazePAM 1 MG TABLET PO SCH ×2 (10:18→20:17)
[2020-02-13] MEDS ORDERED: amLODIPine 5 MG TABLET PO SCH (13:15)
[2020-02-13] MEDS ORDERED: lisinopriL 10 MG TABLET PO SCH (15:15)
[2020-02-13] MEDS: *HR* Heparin 5,000 UNIT/ML VIAL SQ SCH (15:24)
[2020-02-13] MEDS ORDERED: carvediloL 6.25 MG TABLET PO SCH (17:00)
[2020-02-14] MEDS: *HR* Heparin 5,000 UNIT/ML VIAL SQ SCH (05:17)
[2020-02-14 06:32] VITALS: BP 133/57
== END 2020-02-14 10:27 | disposition home or self-care (01) ==
LOC: 3BNU 15:55 → EMEROOARM 15:55 → SUATTDRO 18:07 → 3BNU 18:43
PROVIDERS: ADMIT Pharmacist; ATTEND Internal Medicine

== ENCOUNTER 2020-03-05 14:05 | Observation (INO) ==
[2020-03-05 15:08] LABS: Basophils # 0.1 K/mcL (0.0-0.2); Basophils % 0.6 %; Eosinophils # 0.3 K/mcL (0.0-0.6); Eosinophils % 3.2 %; Hematocrit 42.5 % (35.3-44.9); Hemoglobin 13.5 g/dL (11.5-15.4); Immature Granulocytes % 0.3 % (0-4); Lymphocytes % 31.7 %; Mean Corpuscular HGB Conc 31.8 g/dL (31.6-35.5); Mean Corpuscular Hemoglobin 29.2 pg (28.0-33.3); Mean Platelet Volume 11.6 fL (9.4-12.4); Monocytes # 0.8 K/mcL (0.0-1.3); Monocytes % 8.7 %; Neutrophils # 5.2 K/mcL (1.6-8.9); Platelet Count 270 K/mcL (140-400); Red Blood Count 4.62 M/mcL (3.82-4.97); Red Cell Distribution Width 12.7 % (11.5-14.5); Segmented Neutrophils % 55.5 %; White Blood Count 9.3 K/mcL (4.3-11.1)
[2020-03-05 15:15] LABS: Prothrombin Time 11.3 Seconds (9.4-12.1)
[2020-03-05 15:18] LABS: Activated Partial Thrombo Time 42.7 Seconds (26.0-36.0)
[2020-03-05 15:35] LABS: BUN/Creatinine Ratio 26 (6-26); Blood Urea Nitrogen 33 mg/dL (8-23); Calcium 9.5 mg/dL (8.6-10.3); Carbon Dioxide 30 mEq/L (23-29); Chloride 101 mEq/L (98-107); Glucose 77 mg/dL (70-105); Osmolality,Calculated 292 (280-300); Potassium 3.6 mEq/L (3.5-5.1); Sodium 138 mEq/L (136-145); Troponin I < 0.03 ng/mL (< 0.04); eGFR For African Americans 50 (> 60); eGFR For Non-African Americans 41 (> 60)
[2020-03-05] MEDS ORDERED: Naloxone 0.4 MG/ML INJ IVP PRN (16:51)
[2020-03-05 17:37] LABS: Folate 15.5 ng/mL (3.0-16.0)
[2020-03-05] MEDS: clonazePAM 1 MG TABLET PO SCH (19:49)
[2020-03-05] MEDS: *HR* Heparin 5,000 UNIT/ML VIAL SQ SCH (19:49)
[2020-03-05] MEDS: Ringers Solution, Lactated 1,000 ML IVC SCH (19:49)
[2020-03-06] MEDS: *HR* Heparin 5,000 UNIT/ML VIAL SQ SCH ×2 (04:56→18:26)
[2020-03-06 08:41] LABS: Basophils % 0.3 %; Eosinophils # 0.3 K/mcL (0.0-0.6); Eosinophils % 2.9 %; Hematocrit 37.9 % (35.3-44.9); Hemoglobin 12.3 g/dL (11.5-15.4); Immature Granulocytes % 0.3 % (0-4); Lymphocytes # 2.5 K/mcL (0.6-4.6); Lymphocytes % 25.3 %; Mean Corpuscular HGB Conc 32.5 g/dL (31.6-35.5); Mean Corpuscular Hemoglobin 29.4 pg (28.0-33.3); Mean Corpuscular Volume 90.7 fL (83.0-100.0); Mean Platelet Volume 11.4 fL (9.4-12.4); Monocytes # 0.8 K/mcL (0.0-1.3); Monocytes % 8.2 %; Neutrophils # 6.3 K/mcL (1.6-8.9); Platelet Count 244 K/mcL (140-400); Red Blood Count 4.18 M/mcL (3.82-4.97); Red Cell Distribution Width 12.7 % (11.5-14.5)
[2020-03-06 09:02] LABS: Calcium 9.1 mg/dL (8.6-10.3); Potassium 4.1 mEq/L (3.5-5.1)
[2020-03-06] MEDS: Aspirin Enteric Coated 81 MG Tablet PO SCH (09:20)
[2020-03-06] MEDS: Ascorbic Acid 500 MG TABLET PO SCH (09:20)
[2020-03-06] MEDS: Cholecalciferol (D-3) 1,000 UNIT (25MCG) TABLET PO SCH (09:20)
[2020-03-06] MEDS: clonazePAM 1 MG TABLET PO SCH ×2 (09:20→20:09)
[2020-03-06] MEDS: Ringers Solution, Lactated 1,000 ML IVC SCH (20:11)
[2020-03-07 01:50] LABS: BUN/Creatinine Ratio 27 (6-26); Blood Urea Nitrogen 24 mg/dL (8-23); Calcium 8.8 mg/dL (8.6-10.3); Carbon Dioxide 26 mEq/L (23-29); Chloride 107 mEq/L (98-107); Glucose 106 mg/dL (70-105); Osmolality,Calculated 296 (280-300); Potassium 3.8 mEq/L (3.5-5.1); Sodium 141 mEq/L (136-145); eGFR For African Americans > 60 (> 60); eGFR For Non-African Americans > 60 (> 60)
[2020-03-07] MEDS: *HR* Heparin 5,000 UNIT/ML VIAL SQ SCH (05:39)
[2020-03-07 07:04] VITALS: BP 139/55
[2020-03-07] MEDS: Aspirin Enteric Coated 81 MG Tablet PO SCH (08:36)
[2020-03-07] MEDS: Cholecalciferol (D-3) 1,000 UNIT (25MCG) TABLET PO SCH (08:36)
[2020-03-07] MEDS: Ascorbic Acid 500 MG TABLET PO SCH (08:36)
[2020-03-07] MEDS: clonazePAM 1 MG TABLET PO SCH (08:36)
== END 2020-03-07 11:25 | disposition home or self-care (01) ==
LOC: 3BNU 14:05 → EMEROOARM 14:05 → SUATTDRO 17:18 → 3BNU 18:33
PROVIDERS: ADMIT Student in an Organized Health Care Education/Training Program; ATTEND Internal Medicine

== ENCOUNTER 2020-06-26 19:27 | Inpatient (IN) ==
[2020-06-26 20:51] LABS: Bilirubin,Urine Negative (Negative); Blood,Urine Small (Negative); Clarity,Urine Turbid (Clear); Color,Urine Yellow (Yellow); Glucose,Urine (UA) Normal (Normal); Hyaline Casts,Urine Moderate per lpf (None Seen); Ketones,Urine Negative (Negative); Leukocyte Esterase,Urine Moderate (Negative); Mucus,Urine Few per lpf (None-Few); Nitrite,Urine Negative (Negative); Protein,Urine 30 mg/dL (Neg-Trace); RBC,Urine 15-30 per hpf (0-3); Squamous Epithelial Cell,Urine Few per hpf (None-Few); Urobilinogen,Urine Normal (Normal); WBC,Urine 15-30 per hpf (0-3)
[2020-06-26 21:00] LABS: Amphetamine Screen,Urine Positive ng/mL (Cutoff=1000); Barbiturate Screen,Urine Negative ng/mL (Cutoff=200); Benzodiazepines Screen,Urine Negative ng/mL (Cutoff=200); Cannabinoid Screen,Urine Negative ng/mL (Cutoff = 50); Cocaine Screen,Urine Negative ng/mL (Cutoff= 300); Opiate Screen,Urine Negative ng/mL (Cutoff=300); Phencyclidine Screen,Urine Negative ng/mL (Cutoff=25)
[2020-06-26 21:15] LABS: Basophils # 0.1 K/mcL (0.0-0.2); Basophils % 0.5 %; Eosinophils # 0.1 K/mcL (0.0-0.6); Eosinophils % 0.7 %; Hemoglobin 13.2 g/dL (11.5-15.4); Immature Granulocytes % 0.5 % (0-4); Lymphocytes % 15.1 %; Mean Corpuscular HGB Conc 30.7 g/dL (31.6-35.5); Mean Corpuscular Hemoglobin 29.3 pg (28.0-33.3); Mean Corpuscular Volume 95.6 fL (83.0-100.0); Mean Platelet Volume 12.5 fL (9.4-12.4); Monocytes # 1.1 K/mcL (0.0-1.3); Monocytes % 8.3 %; Neutrophils # 9.7 K/mcL (1.6-8.9); Platelet Count 181 K/mcL (140-400); Red Cell Distribution Width 13.2 % (11.5-14.5); Segmented Neutrophils % 74.9 %; White Blood Count 12.9 K/mcL (4.3-11.1)
[2020-06-26 21:25] LABS: Estimated Average Glucose 120 mg/dl; Hemoglobin A1C 5.8 %
[2020-06-26] MEDS ORDERED: CefTRIAXone 1,000 MG VIAL IM ONE (21:54)
[2020-06-26] MEDS ORDERED: cefTRIAXone 1,000 MG in Water for inj. (sterile) 10 ML IVP ONE (21:58)
[2020-06-26 22:13] LABS: Alanine Aminotransferase 9 Units/L (7-52); Albumin 4.3 g/dL (3.5-5.7); Alkaline Phosphatase 54 Units/L (34-104); Aspartate Amino Transferase 27 Units/L (13-39); BUN/Creatinine Ratio 19 (6-26); Bilirubin,Total 0.6 mg/dL (0.3-1.0); Blood Urea Nitrogen 29 mg/dL (8-23); Calcium 10.1 mg/dL (8.6-10.3); Carbon Dioxide 23 mEq/L (23-29); Chloride 107 mEq/L (98-107); Cholesterol 158 mg/dL (< 200); Glucose 97 mg/dL (70-105); Osmolality,Calculated 298 (280-300); Sodium 141 mEq/L (136-145); Thyroid Stimulating Hormone 0.799 mcIU/mL (0.340-5.600); eGFR For African Americans 40 (> 60); eGFR For Non-African Americans 33 (> 60)
[2020-06-26 22:25] LABS: Acetaminophen < 10 mcg/mL (10-20); Albumin/Globulin Ratio 1.5 (1.1-2.2); Bilirubin,Direct 0.1 mg/dL (0.0-0.2); Bilirubin,Indirect 0.5 mg/dL (0.0-1.0); Chol/HDL Ratio 2.6 (0-4.9); Ethanol < 10 mg/dL (Less than 10); Globulin 2.9 g/dL (2.4-3.5); HDL Cholesterol 61 mg/dL (40-59); LDL Cholesterol,Calculated 71 mg/dL (< 100); Salicylate < 2.5 mg/dL (15.0-30.0); Total Protein 7.2 g/dL (6.4-8.9); Triglycerides 131 mg/dL (< 150)
[2020-06-26] MEDS ORDERED: 0.9 % Sodium Chloride 1,000 ML IVC ONE (23:34)
[2020-06-27] MEDS ORDERED: Naloxone 0.4 MG/ML INJ IVP PRN (00:42)
[2020-06-27] MEDS ORDERED: 0.9 % Sodium Chloride 1,000 ML IVC SCH (00:45)
[2020-06-27 05:01] LABS: Basophils # 0.1 K/mcL (0.0-0.2); Basophils % 0.5 %; Eosinophils # 0.3 K/mcL (0.0-0.6); Eosinophils % 3.3 %; Hematocrit 39.8 % (35.3-44.9); Hemoglobin 12.5 g/dL (11.5-15.4); Immature Granulocytes % 0.5 % (0-4); Lymphocytes # 2.4 K/mcL (0.6-4.6); Mean Corpuscular HGB Conc 31.4 g/dL (31.6-35.5); Mean Corpuscular Hemoglobin 29.7 pg (28.0-33.3); Mean Corpuscular Volume 94.5 fL (83.0-100.0); Mean Platelet Volume 12.2 fL (9.4-12.4); Monocytes # 0.9 K/mcL (0.0-1.3); Monocytes % 9.5 %; Neutrophils # 6.1 K/mcL (1.6-8.9); Platelet Count 198 K/mcL (140-400); Red Blood Count 4.21 M/mcL (3.82-4.97); Red Cell Distribution Width 13.1 % (11.5-14.5); Segmented Neutrophils % 62.2 %; White Blood Count 9.9 K/mcL (4.3-11.1)
[2020-06-27 05:19] LABS: Calcium 9.2 mg/dL (8.6-10.3); Potassium 3.8 mEq/L (3.5-5.1)
[2020-06-27] MEDS: *HR* Heparin 5,000 UNIT/ML VIAL SQ SCH ×3 (05:58→20:30)
[2020-06-27] MEDS ORDERED: lisinopriL 10 MG TABLET PO SCH (09:00)
[2020-06-27] MEDS: cefTRIAXone 1,000 MG in 0.9 % Sodium Chloride Mini Bag 100 ML IVPB SCH (20:20)
[2020-06-27] MEDS: clonazePAM 1 MG TABLET PO SCH (20:21)
[2020-06-28 03:12] LABS: Hematocrit 38.3 % (35.3-44.9); Hemoglobin 11.7 g/dL (11.5-15.4); Mean Corpuscular HGB Conc 30.5 g/dL (31.6-35.5); Mean Corpuscular Hemoglobin 29.3 pg (28.0-33.3); Mean Corpuscular Volume 95.8 fL (83.0-100.0); Mean Platelet Volume 12.6 fL (9.4-12.4); Platelet Count 184 K/mcL (140-400); Red Cell Distribution Width 13.2 % (11.5-14.5); White Blood Count 6.9 K/mcL (4.3-11.1)
[2020-06-28 03:29] LABS: Calcium 8.7 mg/dL (8.6-10.3); Potassium 4.1 mEq/L (3.5-5.1)
[2020-06-28] MEDS: *HR* Heparin 5,000 UNIT/ML VIAL SQ SCH ×3 (06:25→20:06)
[2020-06-28] MEDS: Aspirin Enteric Coated 81 MG Tablet PO SCH (07:34)
[2020-06-28] MEDS: clonazePAM 1 MG TABLET PO SCH ×2 (07:35→20:06)
[2020-06-28] MEDS ORDERED: Ringers Solution, Lactated 1,000 ML IVC ONE (13:32)
[2020-06-28] MEDS: cefTRIAXone 1,000 MG in 0.9 % Sodium Chloride Mini Bag 100 ML IVPB SCH ×2 (20:05→21:32)
[2020-06-28] MEDS ORDERED: CefTRIAXone 1,000 MG VIAL IM ONE (21:57)
[2020-06-29 05:16] LABS: BUN/Creatinine Ratio 33 (6-26); Blood Urea Nitrogen 35 mg/dL (8-23); Calcium 9.2 mg/dL (8.6-10.3); Carbon Dioxide 26 mEq/L (23-29); Chloride 107 mEq/L (98-107); Glucose 98 mg/dL (70-105); Osmolality,Calculated 298 (280-300); Potassium 4.4 mEq/L (3.5-5.1); Sodium 140 mEq/L (136-145); eGFR For African Americans > 60 (> 60); eGFR For Non-African Americans 50 (> 60)
[2020-06-29] MEDS: *HR* Heparin 5,000 UNIT/ML VIAL SQ SCH ×3 (05:23→20:41)
[2020-06-29] MEDS: Aspirin Enteric Coated 81 MG Tablet PO SCH (07:18)
[2020-06-29] MEDS: clonazePAM 1 MG TABLET PO SCH ×2 (07:18→20:41)
[2020-06-30] MEDS: *HR* Heparin 5,000 UNIT/ML VIAL SQ SCH ×2 (05:37→13:50)
[2020-06-30] MEDS: Aspirin Enteric Coated 81 MG Tablet PO SCH (08:36)
[2020-06-30] MEDS: clonazePAM 1 MG TABLET PO SCH (08:36)
[2020-06-30 12:53] VITALS: BP 123/75
== END 2020-06-30 19:09 | DRG 872 ==
LOC: EMEROOARM 19:27 → 3BNU 19:27 → SUATTDRO 23:39 → 3BNU 23:41 → SUATTDRO 06-30 12:52
PROVIDERS: ADMIT Student in an Organized Health Care Education/Training Program; ATTEND Internal Medicine